=== PATIENT | male | born 1935 | race Asian ===

== ENCOUNTER 2018-02-10 05:38 | Day surgery (SDC) | payer MEDICARE, OTHER ==
[~2018-02-10] VITALS: Ht 167.6 cm; Wt 65.0 kg
[2018-02-10] MEDS ORDERED: LIDOCAINE HCL 2% 30 ML JELLY TP ONE (05:39)
[2018-02-10] MEDS ORDERED: EPINEPHrine 1:1,000 [1 MG/ML] AMP IM ONE (05:39)
[2018-02-10] MEDS ORDERED: LIDOCAINE HCL 4% 50 ML SOLUTION TP ONE (05:39)
[2018-02-10] MEDS ORDERED: BENZOCAINE 20% 50 MCG/SPRAY 57 GM TP ONE (05:39)
[2018-02-10] MEDS ORDERED: SODIUM CHLORIDE 0.9% 1,000 ML IV ONE ×2 (06:41→07:30)
[2018-02-10] MEDS ORDERED: MIRT15 PO (07:32)
[2018-02-10] MEDS ORDERED: AMLO-512 PO (07:32)
[2018-02-10] MEDS ORDERED: PREG25 PO (07:32)
[2018-02-10] MEDS ORDERED: SITA25 PO (07:32)
[2018-02-10] MEDS ORDERED: MONT10TA21 PO (07:32)
[2018-02-10] MEDS ORDERED: FURO20 PO (07:32)
[2018-02-10] MEDS ORDERED: ASPI-556 PO (07:32)
[2018-02-10] MEDS ORDERED: ALLO100T PO (07:32)
[2018-02-10] MEDS ORDERED: TAMS0.4C32 PO (07:32)
[2018-02-10] MEDS ORDERED: ATOR10TA84 PO (07:32)
[2018-02-10] MEDS ORDERED: ROPI1TAB11 PO (07:32)
[2018-02-10] MEDS ORDERED: ALBU8HFA IH (07:32)
[2018-02-10] MEDS ORDERED: OMEP20 PO (07:32)
[2018-02-10] MEDS ORDERED: CLON-570 PO (07:32)
[2018-02-10] MEDS ORDERED: FentaNYL CITRATE-PF 100 MCG/2 ML VIAL ONE (08:19)
[2018-02-10] MEDS ORDERED: MIDAZOLAM HCL 2 MG/2 ML VIAL ONE (08:19)
[2018-02-10] MEDS ORDERED: MethylPREDNISolone SOD SUCC 125 MG/2 ML VIAL IVP ONE (08:45)
[2018-02-10] MEDS ORDERED: MethylPREDNISolone SOD SUCC 125 MG/2 ML VIAL ONE (08:51)
[2018-02-10] MEDS ORDERED: OXYGEN THERAPY IH SCH (20:00)
== END 2018-02-10 10:40 | disposition home or self-care (01) ==
LOC: SURGERY 05:38
PROVIDERS: ATTEND Internal Medicine Critical Care Medicine
DX: J38.4 Edema of larynx (principal); B37.0 Candidal stomatitis; J45.998 Other asthma; E11.9 Type 2 diabetes mellitus without complications; G25.81 Restless legs syndrome; E78.00 Pure hypercholesterolemia, unspecified; I11.9 Hypertensive heart disease without heart failure; Z79.82 Long term (current) use of aspirin; Z79.01 Long term (current) use of anticoagulants; Z79.4 Long term (current) use of insulin; Z79.84 Long term (current) use of oral hypoglycemic drugs; Z87.891 Personal history of nicotine dependence; Z79.899 Other long term (current) drug therapy
CPT/HCPCS: 31623; 31624; 71045; 87015; 87070; 87205; 87206; 87220; 88108; 88312; J0171; J2250; J2930; J3010; J7030